=== PATIENT | female | born 1945 | race Two or more races ===

== ENCOUNTER → 2017-08-28 | Outpatient (REF) | payer BC, MEDICARE | LOC: M SFHCLERA 12:02 | PROVIDERS: ATTEND Nurse Practitioner Family | DX: R53.81 Other malaise (principal) ==

== ENCOUNTER → 2017-08-28 | Outpatient (CLI) | payer BC, MEDICARE ==
--- NOTE | 2017-08-28 11:49 | REP ---
Clinical: Acute on chronic cough . Comparison: None . Technique: PA and lateral. Findings: The mediastinum and cardiac silhouette are normal. The lung barraza are clear and without acute consolidation, effusion, or pneumothorax. The skeletal structures are intact and normal. Impression: 1. No acute cardiopulmonary process. Signed by Braulio Mays MD 08/28/2017 11:41 A
== END ==
LOC: M LRY 11:17
PROVIDERS: ATTEND Nurse Practitioner Family
DX: R53.81 Other malaise (principal)